=== PATIENT | male | born 1980 | race Caucasian/White ===

== ENCOUNTER 2018-01-06 13:00 | Observation (INO) | payer OTHER ==
[~2018-01-06] VITALS: Ht 190.5 cm; Wt 115.7 kg
--- NOTE | 2018-01-06 13:16 | ED GENERAL ADULT ---
History of Present Illness General Chief Complaint: General Adult Stated Complaint: SEEN HERE EARLIER FOR ABSCESS, REBLEEDING Source: patient, family, old records Exam Limitations: no limitations Vital Signs & Intake/Output Vital Signs & Intake/Output Vital Signs Date Time Temp Pulse Resp B/P B/P Pulse O2 O2 Flow FiO2 Mean Ox Delivery Rate 01/06 1515 97.7 72 18 154/73 95 Room Air 01/06 1428 97 Room Air 01/06 1309 97.6 79 18 137/66 97 Room Air Allergies Coded Allergies: No Known Allergies (06/26/17) Reconcile Medications Alprazolam 2 MG TABLET 1 TAB PO PRN ANXIETY (Reported) Clonazepam 2 MG TABLET 1 TAB PO QPM ANXIETY (Reported) Insulin Lispro (Humalog) 100 UNIT/ML VIAL INSULIN PUMP (Reported) Zolpidem Tartrate (Ambien Cr) 12.5 MG TAB.MPHASE 1 TAB PO PRN SLEEP (Reported ) Triage Nurses Notes Reviewed? yes Onset: Abrupt Duration: hour(s): (2), constant, continues in ED, getting worse Timing: single episode today Injury Environment: home Severity: moderate, severe Severity Numbers: 10 No Modifying Factors: none HPI: 37 male past medical history of insulin-dependent diabetes and anxiety presents for evaluation of bleeding from his surgical site. Patient was seen here for incision and drainage of a large abdominal wall abscess done by Dr. Pop. Patient reports that when he got home after the surgery he had large amount of bleeding coming from the surgical site associated with swelling and pain. Patient states the pain is located in the area of the incision as 10 out of 10 and that the wound is leaking blood. He denies any fever or chest pain shortness of breath dizziness or lightheadedness. He states when he was discharged from the hospital immediately he felt fine. He is not taking any medicine for pain currently. Past History Travel History Traveled to [place] past 21 day No Medical History Any Pertinent Medical History? 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 No Review of Systems Review of Systems Constitutional: Reports: no symptoms. EENTM: Reports: no symptoms. Respiratory: Reports: no symptoms. Cardiovascular: Reports: no symptoms. GI: Reports: see HPI, abdominal pain. Genitourinary: Reports: no symptoms. Musculoskeletal: Reports: no symptoms. Skin: Reports: no symptoms. Neurological/Psychological: Reports: no symptoms. Hematologic/Endocrine: Reports: see HPI, bleeding. Immunologic/Allergic: Reports: no symptoms. All Other Systems: Reviewed and Negative Physical Exam Physical Exam General Appearance: well developed/nourished, alert, awake, anxious, mild distress Head: atraumatic, normal appearance Eyes: Bilateral: normal appearance, PERRL, EOMI. Ears, Nose, Throat: hearing grossly normal Neck: normal inspection, supple, full range of motion Respiratory: normal breath sounds, chest non-tender, no respiratory distress, lungs clear Cardiovascular: regular rate/rhythm, normal peripheral pulses Peripheral Pulses: 2+ radial (R), 2+ radial (L) Gastrointestinal: normal bowel sounds, soft, there is a large horizontal surgical incision with sutures intact going across the suprapubic area. There is active bleeding from the incision and the drain. There is soft tissue swelling and tenderness to palpation around the incision. No pus discharge Back: normal inspection, normal range of motion, no vertebral tenderness Extremities: normal inspection, normal range of motion, no edema Neurologic/Psych: no motor/sensory deficits, awake, alert, oriented x 3, normal gait, normal mood/affect Skin: intact, normal color, warm/dry Core Measures ACS in differential dx? No CVA/TIA Diagnosis: No Sepsis Present: No Sepsis Focused Exam Completed? No Progress Differential Diagnoses I considered the following diagnoses in my evaluation of the patient: [ Postsurgical hematoma, postsurgical seroma, postsurgical hemorrhage postsurgical pain] Plan of Care: Orders Procedure Date/time Status PARTIAL THROMBOPLASTIN TIME 01/06 1313 Complete PROTHROMBIN TIME 01/06 1313 Complete COMPREHENSIVE METABOLIC PANEL 01/06 1313 Complete CBC WITHOUT DIFFERENTIAL 01/06 131 Complete Laboratory Tests 01/06/18 1422: Anion Gap 8, Estimated GFR > 60, BUN/Creatinine Ratio 20.0, Glucose 365 H, Calcium 8.5, Total Bilirubin 0.9, AST 15 L, ALT 17 L, Alkaline Phosphatase 63, Total Protein 6.2 L, Albumin 3.6, Globulin 2.6, Albumin/Globulin Ratio 1.4, PT 10.1, INR 0.93, APTT 29, CBC w Diff NO MAN DIFF REQ, RBC 4.29 L, MCV 90.1, MCH 30.8, MCHC 34.2, RDW 13.9, MPV 9.3, Gran % 61.1, Lymphocytes % 29.5, Monocytes % 6.7, Eosinophils % 2.1, Basophils % 0.6, Absolute Granulocytes 3.4, Absolute Lymphocytes 1.6, Absolute Monocytes 0.4, Absolute Eosinophils 0.1, Absolute Basophils 0 Patient seen and evaluated. He has bleeding coming from the surgical incision. He had surgery this morning. KALOSTAT and pressure dressings were applied to the wound noted to achieve hemostasis however it required multiple dressing changes due to continued bleeding. Patient also required multiple doses of IV morphine for pain control. Spoke with Dr. Pop who came to see the patient will be bringing the patient back to the OR for exploration to find the cause of the bleeding. Initial ED EKG: none Departure Departure Disposition: STILL A PATIENT Condition: Stable Clinical Impression Primary Impression: Post-operative hemorrhage Qualifiers: Surgical complication system/body Area: skin Procedure type: non- dermatologic Qualified Code: L76.22 - Postprocedural hemorrhage of skin and subcutaneous tissue following other procedure Referrals: Neli Schmid (PCP/Family) Departure Forms: Customer Survey General Discharge Information OR/GI Note Spoke With: Donn MERINO,Perez Nuñez ED Treatment Decision: FATOU ZAMUDIO requires urgent operative management or an emergent procedure that cannot be performed in the Emergency Room setting. Operative exploration of bleeding surgical site. Transport To: Surgical [facility] Critical Care Note Critical Care Note Critical Care Time: non-applicable
[2018-01-06 14:35] LABS: ABSOLUTE BASOPHIL COUNT 0 /CUMM (0.0-0.2); ABSOLUTE EOSINOPHIL COUNT 0.1 /CUMM (0.0-0.7); ABSOLUTE GRANULOCYTE CT 3.4 /CUMM (1.4-6.5); ABSOLUTE LYMPH COUNT 1.6 /CUMM (1.2-3.4); ABSOLUTE MONOCYTE COUNT 0.4 /CUMM (0.10-0.60); BASOPHIL % 0.6 % (0.0-2.0); EOSINOPHIL % 2.1 % (0-5); GRANULOCYTE % 61.1 % (42.2-75.2); HEMATOCRIT 38.6 % (42-52); MEAN CORPUSCULAR HGB 30.8 PG (27.0-31.0); MEAN CORPUSCULAR HGB CONC 34.2 G/DL (33.0-37.0); MEAN CORPUSCULAR VOLUME 90.1 FL (80.0-94.0); MEAN PLATELET VOLUME 9.3 FL (7.4-10.4); PLATELET COUNT 165 /CUMM (130-400); RBC DISTRIBUTION WIDTH 13.9 % (11.5-14.5); RED BLOOD CELL CT 4.29 /CUMM (4.70-6.10); WHITE BLOOD CELL COUNT 5.6 /CUMM (4.8-10.8)
[2018-01-06 14:43] LABS: PT 10.1 SEC (9.4-12.5); PTT 29 SEC (25-37)
--- NOTE | 2018-01-06 16:59 | History & Physical Pre-Op ---
General Information and HPI History of Present Illness: Patient presents the ER with bleeding from the surgical site. He underwent excision of abdominal wall hidradenitis suppurativa further today. When he got home there was bleeding site he came back to the emergency room. Pain at the site Allergies/Medications Allergies: Coded Allergies: No Known Allergies (06/26/17) Home Med list Alprazolam 2 MG TABLET 1 TAB PO PRN ANXIETY (Reported) Clonazepam 2 MG TABLET 1 TAB PO QPM ANXIETY (Reported) Insulin Lispro (Humalog) 100 UNIT/ML VIAL INSULIN PUMP (Reported) Zolpidem Tartrate (Ambien Cr) 12.5 MG TAB.MPHASE 1 TAB PO PRN SLEEP (Reported ) Past History Medical History Neurological: NONE EENT: NONE Cardiovascular: NONE Respiratory: NONE Gastrointestinal: NONE Hepatic: NONE Renal: NONE Musculoskeletal: NONE Psychiatric: anxiety Endocrine: IDDM with insulin pump Blood Disorders: NONE Cancer(s): NONE 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 History of MRSA: Yes History of VRE: No History of CDIFF: No Surgical History Pertinent Surgical History: N Past Family/Social History Psychosocial History Services at Home None Review of Systems Review of Systems: Negative Exam & Diagnostic Data Last 24 Hrs of Vital Signs/I&O Vital Signs Date Time Temp Pulse Resp B/P B/P Pulse O2 O2 Flow FiO2 Mean Ox Delivery Rate 01/06 1515 97.7 72 18 154/73 95 Room Air 01/06 1428 97 Room Air 01/06 1309 97.6 79 18 137/66 97 Room Air Intake & Output 01/06 1600 01/06 0800 01/06 0000 Intake Total Output Total Balance Patient 255 lb Weight Weight Estimated Measurement Method Physical Exam: Gen.: Looks like his in some discomfort from pain. No distress Coronary regular rate and rhythm Lungs clear to auscultation Abdomen bleeding with visible hematoma between sutures sites Assessment/Plan Assessment/Plan: Postoperative bleeding after skin and soft tissue resection. He will be taken back to the OR for exploration. As Ranked By This Provider Problem List: 1. Post-operative hemorrhage
--- NOTE | 2018-01-06 21:33 | Admission Core Measures ---
Acute Coronary Syndrome (CM) ACS Core Measures Acute Coronary Syndrome Diagnosis No Congestive Heart Failure (NEW) CHF Core Measures Congestive Heart Failure Diagnosis No Cerebrovascular Accident (NEW) CVA Core Measures CVA/TIA Diagnosis No Venous Thromboembolism VTE Core Gamaliel (View Protocol) VTE Risk Factors Surgery No Mechanical VTE Prophylaxis d/t N/A MechProphylax Ordered No VTE Pharm Prophylaxis d/t Surgical Contraindication Problem List As ranked by this Provider includes Assessment & Plan 1. Post-operative hemorrhage HOME MEDS Home Med List Alprazolam 2 MG TABLET 1 TAB PO PRN ANXIETY (Reported) Clonazepam 2 MG TABLET 1 TAB PO QPM ANXIETY (Reported) Zolpidem Tartrate (Ambien Cr) 12.5 MG TAB.MPHASE 1 TAB PO PRN SLEEP (Reported )
--- NOTE | 2018-01-06 21:43 | PN- General Surgery ---
Subjective Subjective: post op check: co pain, morpine effective for a short time. overall feeling much better than pre op. Objective Vital Signs and I&Os Vital Signs Date Time Temp Pulse Resp B/P B/P Pulse O2 O2 Flow FiO2 Mean Ox Delivery Rate 01/06 1515 97.7 72 18 154/73 95 Room Air 01/06 1428 97 Room Air 01/06 1309 97.6 79 18 137/66 97 Room Air Intake & Output 01/06 1600 01/06 0800 01/06 0000 01/05 1600 01/05 0801/05 0000 Intake Total Output Total Balance Patient 255 lb Weight Weight Estimated Measurement Method Physical Exam: wdwn, aox3, nad heent- wnl no resp distress abd- dressing intact, small amount of bloody staining left lower lateral aspect. mild tenderness. no active bleeding. no swelling in the area Assessment/Plan Assessment/Plan post operative bleeding sp abdominal hidradenitis excision requiring re admission and exploration to control bleeding. placed in 23hr observation to monitor bleeding and pain control hx of IDDM: endocrine consult called, stop insulin pump, start SS per Dr Baez. pain meds as needed. am labs Core Measures Venous Thromboembolism VTE Risk Factors Surgery No Mechanical VTE Prophylaxis d/t N/A MechProphylax Ordered No VTE Pharm Prophylaxis d/t Surgical Contraindication
[2018-01-06 22:34] VITALS: BP 135/74
[2018-01-07 02:03] VITALS: BP 119/68
[2018-01-07 06:30] VITALS: BP 105/53
[2018-01-07 08:18] LABS: ABSOLUTE BASOPHIL COUNT 0 /CUMM (0.0-0.2); ABSOLUTE EOSINOPHIL COUNT 0.1 /CUMM (0.0-0.7); ABSOLUTE GRANULOCYTE CT 2.9 /CUMM (1.4-6.5); ABSOLUTE LYMPH COUNT 1.5 /CUMM (1.2-3.4); ABSOLUTE MONOCYTE COUNT 0.4 /CUMM (0.10-0.60); BASOPHIL % 0.4 % (0.0-2.0); EOSINOPHIL % 2.9 % (0-5); GRANULOCYTE % 58.2 % (42.2-75.2); MEAN CORPUSCULAR HGB 31.8 PG (27.0-31.0); MEAN CORPUSCULAR VOLUME 90.8 FL (80.0-94.0); MEAN PLATELET VOLUME 9.3 FL (7.4-10.4); PLATELET COUNT 156 /CUMM (130-400); RED BLOOD CELL CT 3.44 /CUMM (4.70-6.10); WHITE BLOOD CELL COUNT 4.9 /CUMM (4.8-10.8)
--- NOTE | 2018-01-07 08:23 | Cons- Endocrinology ---
General Information and HPI Consulting Request Date of Consult: 01/07/18 Requested By: surgical team Reason for Consult: Type 1 diabetes mellitus and need to come off insulin pump in the hospital Source of Information: patient, old records Exam Limitations: no limitations History of Present Illness: This 37-year-old male has a known history of type 1 diabetes since age 14. He has managed on an insulin pump. He also has insulin resistance and requires large doses of insulin before meals. The patient underwent a procedure yesterday for hidradenitis in his lower abdomen. When he left the hospital and went home he experienced the onset of bleeding from the operative site. An ambulance was called and he was brought back to the emergency room. He went back to the OR and the vessel that was bleeding was found and the bleeding was controlled. I spoke to the surgical PA last night about converting him to subcu insulin. He is now on 18 units of Levemir twice a day as well as sliding scale NovoLog. His blood sugar this morning is 207. Allergies/Medications Allergies: Coded Allergies: No Known Allergies (06/26/17) Home Med List: Alprazolam 2 MG TABLET 1 TAB PO PRN ANXIETY (Reported) Clonazepam 2 MG TABLET 1 TAB PO QPM ANXIETY (Reported) Insulin Lispro (Humalog) 100 UNIT/ML VIAL INSULIN PUMP (Reported) Zolpidem Tartrate (Ambien Cr) 12.5 MG TAB.MPHASE 1 TAB PO PRN SLEEP (Reported ) Review of Systems Review of Systems Constitutional: Denies: chills, fever. Cardiovascular: Denies: chest pain. Respiratory: Denies: cough, short of breath. GI: Reports: abdominal pain (in operative site). Neurological/Psychological: Denies: anxiety. 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 Surgical History Surgical History: none Psychosocial History Services at Home: None Smoking Status: Former Smoker Exam & Diagnostic Data Last 24 Hrs of Vital Signs/I&O Vital Signs Date Time Temp Pulse Resp B/P B/P Pulse O2 O2 Flow FiO2 Mean Ox Delivery Rate 01/07 0630 97.6 74 20 105/53 98 Room Air 01/07 0203 97.6 79 18 119/68 96 Room Air 01/06 2234 97.7 90 18 135/74 99 Room Air 01/06 1515 97.7 72 18 154/73 95 Room Air 01/06 1428 97 Room Air 01/06 1309 97.6 79 18 137/66 97 Room Air Intake & Output 01/07 1600 01/07 0801/07 0000 Intake Total 1080 555 Output Total 600 600 Balance 480 -45 Intake, IV 600 75 Intake, Oral 480 480 Number 1 0 Bowel Movements Output, Urine 600 600 Patient 255 lb Weight Vital Signs Date Time Temp Pulse Resp B/P B/P Pulse O2 O2 Flow FiO2 Mean Ox Delivery Rate 01/07 0630 97.6 74 20 105/53 98 Room Air 01/07 0203 97.6 79 18 119/68 96 Room Air 01/06 2234 97.7 90 18 135/74 99 Room Air 01/06 1515 97.7 72 18 154/73 95 Room Air 01/06 1428 97 Room Air 01/06 1309 97.6 79 18 137/66 97 Room Air Intake & Output 01/07 1600 01/07 0800 01/07 0000 Intake Total 1080 555 Output Total 600 600 Balance 480 -45 Intake, IV 600 75 Intake, Oral 480 480 Number 1 0 Bowel Movements Output, Urine 600 600 Patient 255 lb Weight Physical Exam General Appearance: alert, awake, comfortable Head: normal appearance Eyes: Bilateral: normal appearance. Respiratory: normal breath sounds Cardiovascular: regular rate/rhythm Gastrointestinal: normal bowel sounds, soft Extremities: normal inspection Labs/Chris Results: Laboratory Tests 01/07 01/06 0715 1422 Chemistry Sodium (137 - 145 mmol/L) Pending 136 L Potassium (3.5 - 5.1 mmol/L) Pending 4.7 Chloride (98 - 107 mmol/L) Pending 104 Carbon Dioxide (22 - 30 mmol/L) Pending 24 Anion Gap (5 - 16) Pending 8 BUN (9 - 20 mg/dL) Pending 14 Creatinine (0.7 - 1.2 mg/dL) Pending 0.7 Estimated GFR (>60 ml/min) > 60 BUN/Creatinine Ratio (7 - 25 %) Pending 20.0 Glucose (65 - 99 mg/dL) 365 H Calcium (8.4 - 10.2 mg/dL) 8.5 Total Bilirubin (0.2 - 1.3 mg/dL) 0.9 AST (17 - 59 U/L) 15 L ALT (21 - 72 U/L) 17 L Alkaline Phosphatase (< 127 U/L) 63 Total Protein (6.3 - 8.2 g/dL) 6.2 L Albumin (3.5 - 5.0 g/dL) 3.6 Globulin (1.9 - 4.2 gm/dL) 2.6 Albumin/Globulin Ratio (1.1 - 2.2 %) 1.4 Coagulation PT (9.4 - 12.5 SEC) 10.1 INR (0.90 - 1.17) 0.93 APTT (25 - 37 SEC) 29 Hematology CBC w Diff Pending NO MAN DIFF REQ WBC (4.8 - 10.8 /CUMM) Pending 5.6 RBC (4.70 - 6.10 /CUMM) Pending 4.29 L Hgb (14.0 - 18.0 G/DL) Pending 13.2 L Hct (42 - 52 %) Pending 38.6 L MCV (80.0 - 94.0 FL) Pending 90.1 MCH (27.0 - 31.0 PG) Pending 30.8 MCHC (33.0 - 37.0 G/DL) Pending 34.2 RDW (11.5 - 14.5 %) Pending 13.9 Plt Count (130 - 400 /CUMM) Pending 165 MPV (7.4 - 10.4 FL) Pending 9.3 Gran % (42.2 - 75.2 %) 61.1 Lymphocytes % (20.5 - 51.1 %) 29.5 Monocytes % (1.7 - 9.3 %) 6.7 Eosinophils % (0 - 5 %) 2.1 Basophils % (0.0 - 2.0 %) 0.6 Absolute Granulocytes (1.4 - 6.5 /CUMM) 3.4 Absolute Lymphocytes (1.2 - 3.4 /CUMM) 1.6 Absolute Monocytes (0.10 - 0.60 /CUMM) 0.4 Absolute Eosinophils (0.0 - 0.7 /CUMM) 0.1 Absolute Basophils (0.0 - 0.2 /CUMM) 0 Assessment/Plan Assessment/Plan This 37-year-old male has a known history of type 1 diabetes managed on the outside on an insulin pump. He had to go back to the OR last evening because of bleeding from the operative site. The bleeding has been controlled and is doing better this morning. He is going to be able to eat breakfast. I spoke with the surgical PA last night and the patient was started on 18 units of Levemir twice a day last night. Sliding scale NovoLog before meals has been written with a separate sliding scale at bedtime. Morning's labs are pending. His fingerstick sugar this morning however was 207. Suggest keep him on the present insulin regimen. We will monitor his sugars today. If the patient goes home he is aware that he will have some Levemir on board and will have to use a temporary basal on his pump for several hours and to the effects of the Levemir wear off. Consult Acknowledgment - Thank you for your consult request.
--- NOTE | 2018-01-07 08:33 | PN- General Surgery ---
See Addendum Subjective Subjective: No events overnight. Patient states to be feeling much better than pre-op. Admits to mild abdominal pain controlled with Oxycodone. Tolerated clears overnight without nausea or emesis, has not yet eaten food, getting breakfast this am. Denies any chills, chest pain, SOB, lightheadedness, or dizziness. Ambulating to the bathroom without issue. Voiding freely, passing flatus, and had a bowel movement. Objective Vital Signs and I&Os Vital Signs Date Time Temp Pulse Resp B/P B/P Pulse O2 O2 Flow FiO2 Mean Ox Delivery Rate 01/07 0630 97.6 74 20 105/53 98 Room Air 01/07 0203 97.6 79 18 119/68 96 Room Air 01/06 2234 97.7 90 18 135/74 99 Room Air 01/06 1515 97.7 72 18 154/73 95 Room Air 01/06 1428 97 Room Air 01/06 1309 97.6 79 18 137/66 97 Room Air Intake & Output 01/07 1600 01/07 0800 01/07 0000 01/06 1600 01/06 0800 01/06 0000 Intake Total 1080 555 Output Total 600 600 Balance 480 -45 Intake, IV 600 75 Intake, Oral 480 480 Number 1 0 Bowel Movements Output, Urine 600 600 Patient 255 lb 255 lb Weight Weight Estimated Measurement Method Physical Exam: Afebrile, VSS. Cardiac: RRR Pulmonary: CTAB Abdominal: +BS, dressing with moderate bloody drainage noted to left side (where violeta drain is). Dressing taken down, no active drainage noted from violeta or at incision. Mild tenderness to palpation, unable to express any drainage upon palpation. New dressing applied. No LE edema. Assessment/Plan Assessment/Plan A/P: 37 y/o male POD#1 s/p excision of abdominal wall hidradenitis suppurativa complicated by post operative bleeding requiring re admission and exploration to control bleeding. Stable this am. - Carb diet this am - PO pain control prn - Monitor abdominal dressing - Encourage OOB/IS/ambulation - hx of IDDM: endocrine following, insulin pump stopped and started on SS per Dr Baez - Follow up am labs - Plan for d/c if H/H stable this am - Pt d/w Dr. Pop who agrees with above plan Core Measures Venous Thromboembolism VTE Risk Factors Surgery No Mechanical VTE Prophylaxis d/t N/A MechProphylax Ordered No VTE Pharm Prophylaxis d/t Surgical Contraindication
[2018-01-07 08:44] LABS: HEMATOCRIT 31.2 % (42-52)
--- NOTE | 2018-01-07 09:25 | Patient Discharge Instructions ---
Discharge Instructions General Discharge Information You were seen/treated for: HYDRADENITIS You had these procedures: HYDRADENITIS EXCISION AND TAKE BACK FOR EVACUATION OF HEMATOMA Watch for these problems: FEVER REDNESS AROUND WOUND DRAINAGE FROM INCISION SUDDEN INCREASE IN PAIN No bath, but you may shower: Yes Other wound care: KEEP WOUND CLEAN AND DRY Special Instructions: NO DRIVING WHILE TAKING PAIN MEDICATIONS Diet Continue normal diet: Yes Activity Activity Self Limited: Yes Acute Coronary Syndrome Inclusion Criteria At DC or during hospital stay patient has or had the following: ACS DIAGNOSIS No Discharge Core Measures Meds if any: Prescribed or Continued at Discharge Meds if any: NOT Prescribed or Continued at Discharge Congestive Heart Failure Inclusion Criteria At DC or during hospital stay patient has or had the following: CHF DIAGNOSIS No Discharge Core Measures Meds if any: Prescribed or Continued at Discharge Meds if any: NOT Prescribed or Continued at Discharge Cerebrovascular accident Inclusion Criteria At DC or during hospital stay patient has or had the following: CVA/TIA Diagnosis No Discharge Core Measures Meds if any: Prescribed or Continued at Discharge Meds if any: NOT Prescribed or Continued at Discharge Venous thromboembolism Inclusion Criteria VTE Diagnosis No VTE Type NONE VTE Confirmed by (Test) NONE Discharge Core Measures - Per Current guidelines, there needs to be overlap - treatment for the first 5 days of Warfarin therapy. - If discharged on Warfarin prior to 5 days of - overlap therapy, the patient will need to be - assessed for post discharge needs including - *Post discharge parental anticoagulation - *Warfarin and/or parental anticoagulation education - *Follow up date to check INR post discharge At least 5 days overlap therapy as Inpatient No Meds if any: Prescribed or Continued at Discharge Note: Overlap Therapy is Warfarin and Anticoagulant Meds if any: NOT Prescribed or Continued at Discharge
== END 2018-01-07 10:00 ==
LOC: ERH 13:00 → PACUH 18:59 → ENRESERV 20:19 → ENTRNSPT 20:37 → EDTRNSPT 20:43 → EDTRNSPTSTS 20:43 → 2NB 20:57 → CMPTRNSPT 21:03 → ENPENDDIS 01-07 09:40 → 2NB 01-07 10:00
PROVIDERS: Physician Assistant; Physician Assistant Medical
DX: L73.2 Hidradenitis suppurativa (principal); K91.840 Postprocedural hemorrhage of a digestive system organ or structure following a digestive system procedure; K91.870 Postprocedural hematoma of a digestive system organ or structure following a digestive system procedure; Y83.9 Surgical procedure, unspecified as the cause of abnormal reaction of the patient, or of later complication, without mention of misadventure at the time of the procedure; E10.9 Type 1 diabetes mellitus without complications; Z96.41 Presence of insulin pump (external) (internal); F17.200 Nicotine dependence, unspecified, uncomplicated; F41.9 Anxiety disorder, unspecified
CPT/HCPCS: 6040; 36415; 82436; 96376; G0378; J0131; J1815

== ENCOUNTER → 2018-01-06 | Day surgery (SDC) | payer OTHER ==
[~2018-01-06] VITALS: Ht 190.5 cm; Wt 117.5 kg
[~2018-01-06] MED LIST: ALPRAZOLAM2 M2 PO; ALPRAZOLAM2 MG PO; AMBIEN CR12.5 M1 PO; AMOXICILLIN875 M1 PO; BACTRIM DS TAB1 EACH PO; CLONAZEPAM2 M2 PO; CLONAZEPAM2 MG PO; FLEXERIL10 MG PO; HUMALOG100 U/ML SC; HUMALOG100 UNIT/2 SC; LEVEMIR 10100 UNITS/ SC; MOTRIN 600 MG600 MG PO; NOVOLOG100 U/ML SC; PERCOCET 325 MG1 TA2 PO; PERCOCET 5-3251 EACH PO; SIMVASTATIN5 MG PO; ZOLPIDEM TART12.5 M1 PO
--- NOTE | 2018-01-06 18:43 | Operative Report ---
Operative/Inv Procedure Report Surgery Date: 01/06/18 Name of Procedure: Excision abdominal wall hidradenitis (40 x 8cm) Pre-Operative Diagnosis: Hidradenitis Post-Operative Diagnosis: Same Estimated Blood Loss: scant Surgeon/Geoscience Professor: Donn MERINO,Perez Nuñez Anesthesia: laryngeal mask airway Drains: Rik Operative Indication: 37-year-old male with insulin-dependent diabetes mellitus presents for resection of chronic hidradenitis lower abdominal wall. Operative/Procedure Note Note: After consent is brought to the operative laid supine. Sedation was obtained and his abdomen was prepped and draped. The skin around the chronically inflamed nodules was infiltrated with a cocktail local anesthesia. The skin was marked and then incised sharply. Circumferentially dissection was carried forth with cautery in the skin and small amount of subcutaneous tissues were then lifted up off the bed and passed off the field. The wound was irrigated with saline. There was going to be some tension along the wound to therefore superior and inferiorly based skin flaps were created with cautery. This allowed the incision to be closed with less tension. Hemostasis achieved with cautery. Once hemostasis was complete the wound was then closed over a half- inch [place] drain due to the high infectious risk. Closure was accomplished with a single layer 3-0 nylon sutures in a vertical mattress fashion. Sponge and needle counts are correct CC: Neli Schmid; Sasha MERINO,Mykel Espinosa
== END ==
LOC: STS 01:30
DX: L73.2 Hidradenitis suppurativa (principal); E10.9 Type 1 diabetes mellitus without complications; Z79.4 Long term (current) use of insulin; Z96.41 Presence of insulin pump (external) (internal); Z22.322 Carrier or suspected carrier of Methicillin resistant Staphylococcus aureus; R59.1 Generalized enlarged lymph nodes; Z87.891 Personal history of nicotine dependence; M54.2 Cervicalgia
CPT/HCPCS: 6040; 88305; C9399; G0378; J0131; J2250; J2405